=== PATIENT | male | born 1950 | race Caucasian/White ===

== ENCOUNTER 2017-03-06 22:20 | Emergency (ER) | payer OTHER ==
--- NOTE | ~2017-03-06 | HP ---
PATIENT'S NAME: ANNA CORDOVA [facility] AGE: 66 Y [address] ROOM: [place] [id number] LOCATION: [facility] ADMIT DATE: 03/06/2017 History & Physical DISCHARGE DATE: 03/06/2017 FAMILY PHYSICIAN: Physician, Unknown ATTENDING PHYSICIAN: Aguila Campbell DATE OF SERVICE: 03/06/2017 CHIEF COMPLAINT: Incarcerated hernia. HISTORY OF PRESENT ILLNESS: Mr. Cordova is a 66-year-old gentleman who has had a known ventral hernia just above his umbilicus for some time now. In the past, he never really had any major symptoms from that. He has reduced it a few times. Then, late this afternoon while driving he had an abrupt onset of severe pain associated with it. The pain was quite intense and seemed to be centered in this area. The hernia was hard and nonreducible. He was seen in [place] and a CT scan was done which showed bowel within the hernia causing an obstructive picture. The hernia could not be reduced there and he was transferred to [facility] by ambulance. During transfer, the hernia spontaneously reduced. The patient felt it pop back in. His pain almost completely resolved right away. He was not nauseated earlier, but has had some nausea now which he relates secondary to the pain medication. PAST MEDICAL HISTORY: Positive for depression, coronary artery disease, and type 2 diabetes. MEDICATIONS: 1. Lexapro. 2. Glyburide. 3. Amlodipine. 4. Statin. 5. Aspirin. 6. Plavix. ALLERGIES: PENICILLIN. PREVIOUS SURGERIES: The patient has had a heart catheterization with stent. No abdominal surgeries. SOCIAL HISTORY: The patient is . He denies tobacco use or alcohol abuse. PATIENT'S NAME: ANNA CORDOVA [facility] AGE: 66 Y [address] ROOM: [place], [place] [address] LOCATION: [facility] ADMIT DATE: 03/06/2017 History & Physical DISCHARGE DATE: 03/06/2017 FAMILY PHYSICIAN: Physician, Unknown ATTENDING PHYSICIAN: Aguila Campbell PHYSICAL EXAMINATION: GENERAL: The patient is a healthy well-nourished elderly-appearing gentleman. He is somewhat diaphoretic. He does not appear to be in any severe distress or discomfort. VITAL SIGNS: Temperature 98.7, weight 99.4 kg, pulse 59, respirations 16, blood pressure 149/78. HEENT: Pupils are equal. There is no scleral icterus. External ears, nose, and eyelids unremarkable. Oropharynx is clear without lesions or exudate. NECK: There are no masses. The trachea is midline. Breathing is nonlabored. LUNGS: Clear to auscultation bilaterally. HEART: Regular rate and rhythm. ABDOMEN: Soft. It is not distended. The hernia is not palpable at this time. He points to just above his umbilicus in the midline as to where it was before. It is nontender in this area. He has bowel sounds. EXTREMITIES: No cyanosis or clubbing. No obvious deformities. He moves all 4 extremities well. ASSESSMENT: A 66-year-old gentleman with a ventral hernia that was previously incarcerated but spontaneously reduced on the right over here. I certainly think it is reasonable for him to go home though I did discuss putting him in the hospital for observation overnight. He would prefer to go home at this point. I explained that I would be happy to fix this hernia later in the week when the swelling has gone down. Otherwise, he can follow up with one of the surgeons in [place] if he prefers. The patient was leaning towards having his surgery done in [place]. ARCELIA SIMENTAL MD JTM/modl /[id number] CC: Juan Francisco Mera MD D: [id number] T: [id number] HISTORY & PHYSICAL
== END 2017-03-06 22:54 | disposition disaster alternative care site (69) ==
LOC: GMED 22:20
DX: K43.9 Ventral hernia without obstruction or gangrene (principal); E11.9 Type 2 diabetes mellitus without complications; I10 Essential (primary) hypertension; I25.10 Atherosclerotic heart disease of native coronary artery without angina pectoris; F32.9 Major depressive disorder, single episode, unspecified; E78.5 Hyperlipidemia, unspecified; Z79.84 Long term (current) use of oral hypoglycemic drugs; Z79.82 Long term (current) use of aspirin; Z79.01 Long term (current) use of anticoagulants; Z79.899 Other long term (current) drug therapy; Z95.818 Presence of other cardiac implants and grafts; Z88.0 Allergy status to penicillin
CPT/HCPCS: J2405